=== PATIENT | female | born 1945 ===

== ENCOUNTER → 2018-10-15 | Outpatient (REF) | payer MEDICARE ==
[2018-10-15 11:45] LABS: PLATELET COUNT, AUTOMATED 219 K/uL (150-450)
== END ==
LOC: ZZSTITCHES 11:35
PROVIDERS: ATTEND Physician Assistant
DX: R42 Dizziness and giddiness (principal); R94.31 Abnormal electrocardiogram [ECG] [EKG]; E11.9 Type 2 diabetes mellitus without complications
CPT/HCPCS: 82040; 82247; 82310; 82374; 82435; 82553; 82565; 82947; 84075; 84132; 84155; 84295; 84443; 84450; 84460; 84484; 84520; 85025